=== PATIENT | male | born 1985 | race Caucasian/White ===

== ENCOUNTER 2019-11-14 08:59 | Emergency (ER) | payer BC, SELFPAY ==
--- NOTE | 2019-11-14 09:13 | XRR_ITS ---
PROCEDURE INFORMATION: Exam: XR Chest, 1 View Exam date and time: 11/14/2019 9:15 AM Age: 34 years old Clinical indication: Condition or disease; Other: Covid +; Dyspnea; Additional info: Covid/cough/dyspnea TECHNIQUE: Imaging protocol: XR of the chest Views: 1 view. COMPARISON: No relevant prior studies available. FINDINGS: Lungs: Unremarkable. No consolidation. Pleural space: Unremarkable. No pleural effusion. No pneumothorax. Heart/Mediastinum: Unremarkable. No cardiomegaly. Bones/joints: Unremarkable. XR/XR chest 1V portable [id number] IMPRESSION: No acute findings.
--- NOTE | 2019-11-14 09:17 | W.ED.SOB ---
HPI - SOB/Dyspnea General: Chief Complaint: Upper Respiratory Infection Stated Complaint: COVID + Time Seen by Provider: 11/14/19 09:13 History of Present Illness: HPI Narrative: 34-year-old male who comes in today complaining of O2 sats at home were in the mid to low 80s. He was swabbed 2 days ago for COVID and had a positive result today. He had been monitoring his O2 sats at home. He has been increasingly short of breath through the night as he says it is actually a little better this morning. He has had a cough and just begun having some diarrhea as well. He is not diabetic or hypertensive he is morbidly obese. MD elicited complaint: shortness of breath and cough Pertinent past history: other (Known COVID positive) Onset (ago): day(s) Context: recent illness Timing: constant Severity: moderate Exacerbating factors: exertion Relieving factors: rest Known history of: other (COVID positive) Associated symptoms: Reports cough, fever(s) and nausea; Deny abdominal pain, chest congestion, chest pain, diaphoresis, dizziness, extremity pain, hemoptysis, lightheadedness, myalgias, orthopnea, palpitations, paresthesias, polydipsia, polyuria, rash, sense of impending doom, syncope or vomiting Treatment prior to arrival: none Review of Systems Const: Reports: fever(s); Denies: diaphoresis ENMT: Denies: throat pain, ear or mastoid pain, nasal discharge or nasal congestion Card: Denies: chest pain, palpitations, lightheadedness, syncope or orthopnea Resp: Denies: hemoptysis or chest congestion GI: Reports: nausea; Denies: abdominal pain or vomiting : Denies: flank pain, dysuria, urinary frequency or urinary urgency Musc: Denies: extremity pain Skin/Breast: Denies: rash or pruritus Neuro: Denies: dizziness Endo: Denies: polyuria or polydipsia Physical Exam Const: COMMON NORMALS: no acute distress GENERAL APPEARANCE: cooperative and comfortable ORIENTATION/CONSCIOUSNESS: Yes awake, Yes oriented to person, Yes oriented to place and Yes oriented to time HENMT: COMMON NORMALS: normocephalic, atraumatic and hearing grossly normal bilaterally HEAD & SCALP: normocephalic and atraumatic Neck/C-Spine: COMMON NORMALS: full ROM, no lymphadenopathy, supple and no JVD Lymph: LYMPHATIC: no lymphadenopathy noted and no lymphedema noted Resp: COMMON NORMALS: normal respiratory effort, No retractions, No use of accessory muscles and clear to auscultation bilaterally AUSCULTATION: clear to auscultation bilaterally Cardio: COMMON NORMALS: no JVD, regular rate, regular rhythm and No murmurs present (Cardio) RATE: regular rate RHYTHM: regular rhythm GI: COMMON NORMALS: Soft to palpation and No hepatosplenomegaly present AUSCULTATION: Yes normoactive bowel sounds PALPATION: Yes Soft to palpation, No Tenderness to palpation present (GI), No Guarding due to palpation present (GI) and Yes No hepatosplenomegaly present Extremity: COMMON NORMALS: normal to inspection, capillary refill normal, no clubbing, cyanosis or edema, no calf tenderness and no pedal edema Neuro: SENSORIUM/ORIENTATION: Yes oriented to person, Yes oriented to place and Yes oriented to time Skin: COMMON NORMALS: no rashes or lesions noted GENERAL SKIN EXAM: no rashes or lesions noted Course Vital Signs: Vital signs: Vital Signs Temperature 102.9 F H 11/14/19 09:21 Pulse Rate 94 11/14/19 11:56 Respiratory Rate 16 11/14/19 11:56 Blood Pressure 127/70 11/14/19 11:56 Pulse Oximetry 94 11/14/19 11:56 MDM - SOB/Dyspnea MDM Narrative: Medical decision making narrative: Patient is hypoxic does have some changes of COVID-19 no pulmonary emboli. We discussed possible observation in the hospital we do not have any beds here we have to transfer him to [place]. He rather not do that I think it is a viable option he is otherwise healthy is to start him on dexamethasone and get him home oxygen he can monitor his sats at home he has a finger monitor he should continue to monitor keep his sats between 90 and 92 and however follow-up via telehealth tomorrow either with his doctor or with 1 of our cyber security analyst. Lab Data: Labs: Lab Results 11/14/19 11/14/19 11/14/19 Range/Units 09:15 09:15 09:15 WBC 4.5 (4.0-10.0) 10^3/ uL RBC 4.68 (4.1-5.3) 10^6/u L Hgb 13.9 (11.7-16.6) g/dL Hct 42.5 (42.0-52.0) % MCV 90.8 (80-94) fL MCH 29.7 (28.0-34.0) pg MCHC 32.7 (30.0-36.0) g/dL RDW 12.7 (12.1-15.1) % Plt Count 195 (130-400) 10^3/c mm MPV 9.9 (7.4-10.4) fL Neut % (Auto) 78.3 % Lymph % (Auto) 16.9 % Prentiss % (Auto) 4.2 % Eos % (Auto) 0.0 % Baso % (Auto) 0.2 % Neut # (Auto) 3.51 (1.8-7.7) 10^3/u L Lymph # (Auto) 0.8 (0.8-4.8) 10^3/u L Prentiss # (Auto) 0.2 (0.2-0.9) 10^3/u L Eos # (Auto) 0.0 (0.0-0.8) 10^3/u L Baso # (Auto) 0.0 (0.0-0.1) 10^3/u L Nucleated RBC % (a uto) 0 % Nucleated RBCs # 0.0 /100WBC Fibrinogen 440 (174-498) mg/dL D-Dimer 0.65 H (0-0.59) ug/mIFE U Sodium 137 (136-145) mmol/L Potassium 3.7 (3.5-5.1) mmol/L Chloride 100 (98-107) mmol/L Carbon Dioxide 26 (22-29) mmol/L Anion Gap 14.7 (5-19) BUN 13 (6-20) mg/dL Creatinine 1.2 (0.7-1.2) mg/dL GFR Calculation 68.9 L (90-130) mL/min Glucose 122 H (65-115) mg/dL Calculated Osmolal ity 285 (285-295) mOsm/k g Lactic Acid (0.5-2.2) mmol/L Calcium 8.6 (8.5-10.5) mg/dL Ferritin 627 H (30-400) ng/mL Total Bilirubin 0.4 (0.15-1.2) mg/dL AST 38 (0-40) U/L ALT 35 (0-41) U/L Alkaline Phosphata se 63 (40-130) IU/L Lactate Dehydrogen ase 391 H (135-225) U/L C-Reactive Protein 5.9 H (0.0-4.9) mg/L Total Protein 7.5 (6.6-8.7) g/dL Albumin 4.3 (3.5-5.2) g/dL Globulin 3.2 (1.3-4.6) g/dL 11/14/19 Range/Units 09:15 WBC (4.0-10.0) 10^3/ uL RBC (4.1-5.3) 10^6/u L Hgb (11.7-16.6) g/dL Hct (42.0-52.0) % MCV (80-94) fL MCH (28.0-34.0) pg MCHC (30.0-36.0) g/dL RDW (12.1-15.1) % Plt Count (130-400) 10^3/c mm MPV (7.4-10.4) fL Neut % (Auto) % Lymph % (Auto) % Prentiss % (Auto) % Eos % (Auto) % Baso % (Auto) % Neut # (Auto) (1.8-7.7) 10^3/u L Lymph # (Auto) (0.8-4.8) 10^3/u L Prentiss # (Auto) (0.2-0.9) 10^3/u L Eos # (Auto) (0.0-0.8) 10^3/u L Baso # (Auto) (0.0-0.1) 10^3/u L Nucleated RBC % (a uto) % Nucleated RBCs # /100WBC Fibrinogen (174-498) mg/dL D-Dimer (0-0.59) ug/mIFE U Sodium (136-145) mmol/L Potassium (3.5-5.1) mmol/L Chloride (98-107) mmol/L Carbon Dioxide (22-29) mmol/L Anion Gap (5-19) BUN (6-20) mg/dL Creatinine (0.7-1.2) mg/dL GFR Calculation (90-130) mL/min Glucose (65-115) mg/dL Calculated Osmolal ity (285-295) mOsm/k g Lactic Acid 1.2 (0.5-2.2) mmol/L Calcium (8.5-10.5) mg/dL Ferritin (30-400) ng/mL Total Bilirubin (0.15-1.2) mg/dL AST (0-40) U/L ALT (0-41) U/L Alkaline Phosphata se (40-130) IU/L Lactate Dehydrogen ase (135-225) U/L C-Reactive Protein (0.0-4.9) mg/L Total Protein (6.6-8.7) g/dL Albumin (3.5-5.2) g/dL Globulin (1.3-4.6) g/dL Discharge Plan Discharge Patient Disposition: Home Clinical Impression: COVID-19 virus infection Condition: Stable Prescriptions: New dexamethasone 6 mg tablet 6 mg PO Q24H Qty: 7 RF: 0 Discharge Orders: Discharge Order (Routine); Ordered 11/14/19 Ordered By: Naveen Truong Discharge Date/Time: 11/14/19 11:54 Coding Level of Care Code ED Online Marketing Analyst for Chg Fwd Exam Comprehensive
--- NOTE | 2019-11-14 09:18 | CTR_ITS ---
PROCEDURE INFORMATION: Exam: CT Angiography Chest With Contrast Exam date and time: 11/14/2019 9:21 AM Age: 34 years old Clinical indication: Condition or disease; Other: Covid +; Dyspnea TECHNIQUE: Imaging protocol: Computed tomographic angiography of the chest with intravenous contrast. 3D rendering (Not supervised by radiologist): MIP and/or 3D reconstructed images were created by the technologist. Radiation optimization: All CT scans at this facility use at least one of these dose optimization techniques: automated exposure control; mA and/or kV adjustment per patient size (includes targeted exams where dose is matched to clinical indication); or iterative reconstruction. Contrast material: OMNIPAQUE 350; Contrast volume: 190 ml; Contrast route: INTRAVENOUS (IV); COMPARISON: CR (CHEST, ) 11/14/2019 9:23 AM RADIATION DOSE METRICS: Total DLP (mGy-cm): 1212.48 FINDINGS: Pulmonary arteries: No dissection. No visualized embolism as characterized to the most proximal segmental level. Consider alternative form of imaging if indicated. Aorta: Unremarkable. No aortic aneurysm. No aortic dissection. Lungs: Patchy ground-glass airspace disease most pronounced within the lung bases left greater than right as well as within the upper lobes left greater than right. Findings consistent with the given history. Pleural space: Unremarkable. No pneumothorax. No pleural effusion. Heart: Unremarkable. No cardiomegaly. No pericardial effusion. Lymph nodes: Calcified lymph nodes left hilum Liver: Severe fatty infiltration of the liver. Spleen: Prominent spleen. Bones/joints: Unremarkable. No acute fracture. Soft tissues: Unremarkable. Other findings: The thoracic inlet is unremarkable. No dissection. CT/CT angio [place] prot [id number] IMPRESSION: 1. No dissection. No visualized embolism as characterized to the most proximal segmental level. Consider alternative form of imaging if indicated. 2. Patchy ground-glass airspace disease most pronounced within the lung bases left greater than right as well as within the upper lobes left greater than right. Findings consistent with the given history. 3. Severe fatty infiltration of the liver. Radiation Dose CTDIVOL = (mGy): DLP = 1212.48 (mGy-cm)
[2019-11-14 09:21] VITALS: BP 149/81; PULSE 108; RESP 20; TEMP 39.4; O2SAT 90; BMI 39.4
[2019-11-14 09:29] VITALS: BP 157/88; PULSE 113; RESP 26; O2SAT 86; O2SAT 95
[2019-11-14 09:30] LABS: Basophils % 0.2 %; Hematocrit 42.5 % (42.0-52.0); Hemoglobin 13.9 g/dL (11.7-16.6); Lymphocytes # 0.8 10^3/uL (0.8-4.8); Lymphocytes % 16.9 %; Mean Corpuscular HGB Conc 32.7 g/dL (30.0-36.0); Mean Corpuscular Hemoglobin 29.7 pg (28.0-34.0); Mean Corpuscular Volume 90.8 fL (80-94); Mean Platelet Volume 9.9 fL (7.4-10.4); Monocytes # 0.2 10^3/uL (0.2-0.9); Monocytes % 4.2 %; Neutrophils # 3.51 10^3/uL (1.8-7.7); Neutrophils % 78.3 %; Nucleated Red Blood Cells % 0 %; Platelet Count 195 10^3/cmm (130-400); Red Blood Count 4.68 10^6/uL (4.1-5.3); Red Cell Distribution Width 12.7 % (12.1-15.1); White Blood Count 4.5 10^3/uL (4.0-10.0)
[2019-11-14 09:43] LABS: Fibrinogen 440 mg/dL (174-498)
[2019-11-14 09:46] LABS: D Dimer 0.65 ug/mIFEU (0-0.59)
[2019-11-14 09:54] LABS: Lactic Sepsis W/Reflex 1.2 mmol/L (0.5-2.2)
[2019-11-14 09:55] LABS: Alanine Aminotransferase 35 U/L (0-41); Albumin Level 4.3 g/dL (3.5-5.2); Alkaline Phosphatase 63 IU/L (40-130); Anion Gap 14.7 (5-19); Aspartate Amino Transferase 38 U/L (0-40); Blood Urea Nitrogen 13 mg/dL (6-20); C Reactive Protein 5.9 mg/L (0.0-4.9); Calcium 8.6 mg/dL (8.5-10.5); Carbon Dioxide 26 mmol/L (22-29); Chloride 100 mmol/L (98-107); Ferritin 627 ng/mL (30-400); Globulin 3.2 g/dL (1.3-4.6); Glomerular Filtration Rate 68.9 mL/min (90-130); Glucose 122 mg/dL (65-115); Lactate Dehydrogenase 391 U/L (135-225); Osmolality Calculated 285 mOsm/kg (285-295); Potassium 3.7 mmol/L (3.5-5.1); Sodium 137 mmol/L (136-145); Total Bilirubin 0.4 mg/dL (0.15-1.2); Total Protein 7.5 g/dL (6.6-8.7)
[2019-11-14 10:59] VITALS: O2SAT 88; O2SAT 92; O2SAT 94
[2019-11-14] MEDS: acetaminophen 500 mg Tablet 1000 MG PO (11:03)
[2019-11-14] MEDS: dexamethasone 10 mg/mL INJ 6 MG IVP (11:04)
--- NOTE | 2019-11-14 11:11 | PC.SOCIAL ---
Home O2 Patient qualified for home oxygen. Called and spoke with [place] to see if we needed to help set up, she has already set it up.
[2019-11-14 11:56] VITALS: BP 127/70; PULSE 94; RESP 16; O2SAT 94
--- NOTE | 2019-11-15 09:45 | DCPLANNER ---
senior software project manager had message to schedule a follow up appointment for patient for a telehealth visit with pulmonolgy with [facility]. senior software project manager called [facility], spoke with Renata, gave clinic patients information. A follow up appointment was scheduled for Saturday, November 16, 2019 at 11:[address] Tubbs. Clinic will call patient with appointment information.
--- NOTE | 2019-11-27 15:55 | DCPLANNER ---
Patient had an appointment scheduled for 11.16.19 with [facility], pulmonology - patient did attend appointment.
== END 2019-11-14 11:54 | disposition home or self-care (01) ==
PROVIDERS: Emergency Provider Family Medicine
DX: U07.1 COVID-19 (principal)
CPT/HCPCS: 12345; 71045; 71275; 80053; 82728; 83605; 83615; 85025; 85378; 85384; 86140; 96374; 96375; 99283; 99284; J1100; Q9967